=== PATIENT | male | born 1940 | race Caucasian/White ===

== ENCOUNTER → 2020-03-07 | Outpatient (CLI) | payer MEDICARE ==
[~2020-03-07] MED LIST: B-12100T2 PO; D31000TA2 PO
== END ==
LOC: M LABSMTC 10:49
PROVIDERS: ATTEND Anesthesiology
DX: Z01.818 Encounter for other preprocedural examination (principal); Z20.828 Contact with and (suspected) exposure to other viral communicable diseases

== ENCOUNTER 2020-03-12 10:07 | Day surgery (SDC) | payer MEDICARE ==
[~2020-03-12] VITALS: Ht 172.7 cm; Wt 95.7 kg
[~2020-03-12 10:07] MED LIST changes: +LR 1,000 ML IV ONE; +ceFAZolin SOD 2 GM in IV 1 EA IV ONE
[2020-03-12] MEDS ORDERED: fentaNYL 100 MCG/2 ML INJECTION (J3010) As Ordered ONE (11:08)
[2020-03-12] MEDS ORDERED: MIDAZOLAM INJ 2MG/2ML VIAL (J2250 PER 1MG) As Ordered ONE (11:08)
[2020-03-12] MEDS ORDERED: LIDOCAINE 2% 100MG/5ML SDV (FOR ANES.) As Ordered ONE (11:08)
[2020-03-12] MEDS ORDERED: ROCURONIUM BROMIDE 50 MG/5 ML VIAL As Ordered ONE (11:08)
[2020-03-12] MEDS ORDERED: propofoL 200 MG/20 ML VIAL As Ordered ONE (11:08)
[2020-03-12] MEDS ORDERED: NORCO, ANEXSIA 5/325MG TABLET (HYDROcodone/ACETAMINOPHEN) PO PRN (11:30)
[2020-03-12] MEDS ORDERED: MORPHINE 2 MG/ML 1ML VIAL (J2270) IV PRN (11:30)
[2020-03-12] MEDS ORDERED: ACETAMINOPHEN TAB 650MG DOSE (2X325MG) PO PRN (11:30)
[2020-03-12] MEDS ORDERED: BELLADONNA 16.2mg/OPIUM 60mg 1 EA SUPP PR PRN (11:30)
[2020-03-12] MEDS ORDERED: ONDANSETRON 4 MG TAB PO PRN (11:30)
[2020-03-12] MEDS ORDERED: dexameTHASONE 4 MG/ML 1ML VIAL (J1100 PER 1MG) As Ordered ONE (11:37)
[2020-03-12] MEDS ORDERED: SUGAMMADEX SODIUM 500 MG/5 ML VIAL (BRIDION) As Ordered ONE (12:08)
[2020-03-12] MEDS ORDERED: ONDANSETRON 4MG/2ML VIAL As Ordered ONE (12:09)
[2020-03-12] MEDS ORDERED: ACETAMINOPHEN 1000MG 100ML IV BTL (OFIRMEV) (J0131 PER 10MG) As Ordered ONE (12:12)
[2020-03-12] MEDS ORDERED: LR 1,000 ML IV SCH (12:45)
[2020-03-12] MEDS ORDERED: fentaNYL 100 MCG/2 ML INJECTION (J3010) IV PRN (12:45)
[2020-03-12] MEDS ORDERED: PERCOCET 5MG/325MG TAB PO PRN (12:45)
[2020-03-12 14:00] VITALS: BP 135/81
[2020-03-12 14:30] VITALS: BP 136/81
--- NOTE | 2020-03-12 14:33 | RO ---
OPERATIVE NOTE DATE OF OPERATION: 03/12/2020 PREOPERATIVE DIAGNOSIS: BPH with LUTS. POSTOPERATIVE DIAGNOSIS: BPH with LUTS. PROCEDURE PERFORMED: Cystoscopy, TURP. SURGEON: Sang Avendaño MD ANESTHESIA: General. INDICATIONS: This 80-year-old man had a TURP approximately 30 years ago. Lately he has been having recurrent obstructive voiding symptoms. Office cystoscopy revealed significant regrowth of tissue on the right side. PSA 2.8. The patient had poor tolerance for oral medications which worked poorly to relieve his symptoms. PROCEDURE: After obtaining informed consent from the patient, he was taken to the operating room, where he was administered adequate anesthetic; he was prepped and draped in usual manner. 22-Pashto diagnostic cystoscope was passed into the bladder and the bladder inspected. The ureteral orifices were in orthotopic position. There were no mucosal lesions in the bladder. On inspection of the prostatic fossa, there was noted to be significant apical regrowth of tissue on the right side. This caused angulation of the prostatic urethra, likely the source of his obstructive symptoms. The cystoscope was withdrawn and 24-Pashto continuous flow resectoscope was passed over his obturator with sheath passed initially. We used the cutting loop to remove the apical tissue and using saline TURP technique. We irrigated the chips from the bladder with Ellik evacuator and performed meticulous hemostasis with electrocautery. The procedure was concluded with placement of a 22-Pashto three-way Oden catheter. DISPOSITION: The patient is admitted for overnight observation. COMPLICATIONS: None. EBL: 50-100 mL.
[2020-03-12 15:30] VITALS: BP_SYST 134; BP_SYST 136; BP_DIAS 82; BP_DIAS 83
[2020-03-12 16:30] VITALS: BP 134/83
[2020-03-12 17:30] VITALS: BP 134/81
[2020-03-12] MEDS: ceFAZolin SOD 2 GM in D5W MINI-BAG PLUS 50 ML IV SCH (20:53)
[2020-03-12] MEDS: FAMOTIDINE 20 MG TAB PO SCH (20:53)
[2020-03-12 22:00] VITALS: BP 134/59
[2020-03-13 02:00] VITALS: BP 108/55
[2020-03-13] MEDS: ceFAZolin SOD 2 GM in D5W MINI-BAG PLUS 50 ML IV SCH (03:31)
[2020-03-13 06:00] VITALS: BP 105/53
[2020-03-13 08:15] LABS: BLOOD UREA NITROGEN 16 MG/DL (7-18); CALCIUM LEVEL 8.1 MG/DL (8.8-10.2); CARBON DIOXIDE LEVEL 27 MEQ/L (21-32); CHLORIDE LEVEL 109 MEQ/L (98-107); CREATININE FOR GFR 1.12 MG/DL (0.70-1.30); GLOMERULAR FILTRATION RATE > 60.0 (>42); GLUCOSE, FASTING 97 MG/DL (70-100); POTASSIUM SERUM 4.3 MEQ/L (3.5-5.1); SODIUM LEVEL 142 MEQ/L (136-145)
[2020-03-13] MEDS ORDERED: CEPHALEXIN 250MG CAPSULE PO SCH (09:00)
[2020-03-13] MEDS: FAMOTIDINE 20 MG TAB PO SCH (09:06)
[2020-03-13] MEDS ORDERED: PYRI1TAB5 PO (10:39)
[2020-03-13] MEDS ORDERED: KEFL250C11 PO (10:39)
--- NOTE | 2020-03-13 10:51 | DS.PDOC ---
Discharge Summary General Date of Admission 03/12/2020 Date of Discharge 03/13/2020 Attending Physician: TONY LIAO MD Discharge Summary PROCEDURES PERFORMED DURING STAY: TURP. ADMITTING DIAGNOSES: 1. BPH with LUTS. DISCHARGE DIAGNOSES: 1. Same. COMPLICATIONS/CHIEF COMPLAINT: Benign Prostatic Hyperplasia. HISTORY OF PRESENT ILLNESS: Recurrent LUTS with poor emptying and poor tolerance of BPH meds 30 years post TURP. Cysto showed regrowth of BPH tissue. PSA 2.8. HOSPITAL COURSE: Uncomplicated 5 gm TURP. Urine clear on CBI postop. Labs normal PO#1; Afebrile; Controlled symptoms. Successful voiding trial on PO#1. Ambulatory, eating and voiding/emptying @ discharge. DISCHARGE MEDICATIONS: Please see below. ALLERGIES: Please see below. PHYSICAL EXAMINATION ON DISCHARGE: VITAL SIGNS: Please see below. GENERAL: NAD; AA&O x 3 HEENT: Normocephalic,atraumatic NECK: supple CARDIOVASCULAR EXAMINATION: RRR RESPIRATORY EXAMINATION: No resp difficulty; good air movement ABDOMINAL EXAMINATION: NT EXTREMITIES: No edema SKIN: No lesions NEUROLOGICAL EXAMINATION: Nonfocal PSYCHIATRIC EXAMINATION: Judgement/insight intact LABORATORY DATA: Please see below. PROGNOSIS: Excellent ACTIVITY: As per instructions DIET: Regular DISCHARGE PLAN: Home today DISPOSITION: Home DISCHARGE INSTRUCTIONS: 1. Light activity x 1 month. ITEMS TO FOLLOWUP ON ON OUTPATIENT: 1. Path report. DISCHARGE CONDITION: Stable. TIME SPENT ON DISCHARGE: Greater than 30 minutes. Vital Signs/I&Os Vital Signs Date Time Temp Pulse Resp B/P (MAP) Pulse Ox O2 Delivery O2 Flow Rate FiO2 03/13/20 06:00 98.2 61 18 105/53 (70) 95 Room Air I&O- Last 24 Hours up to 6 AM 03/13/20 06:00 Intake Total 1960 ml Output Total 875 ml Balance 1085 ml Laboratory Data Labs 24H Laboratory Tests 2 03/13/20 07:37: Anion Gap 6L, Glomerular Filtration Rate > 60.0, Calcium Level 8.1L CBC/BMP Laboratory Tests 03/13/20 07:37 Discharge Medications Scheduled Cephalexin (Keflex) 250 Mg Capsule, 1 CAP PO TID Cholecalciferol (Vitamin D3) (Vitamin D3) 1,000 Unit Tablet, 1,000 UNITS PO DAILY, (Reported) Cyanocobalamin (Vitamin B-12) (Vitamin B-12) 100 Mcg Tablet, 100 MCG PO DAILY, (Reported) Scheduled PRN Phenazopyridine HCl (Pyridium) 200 Mg Tablet, 200 MG PO TID PRN for BLADDER SPASM Allergies Coded Allergies: No Known Allergies (Unverified , 03/12/20) TONY LIAO MD Mar 13, 2020 10:51
[2020-03-13] MEDS ORDERED: PHENAZOPYRIDINE 100 MG TAB PO PRN (11:00)
== END 2020-03-13 13:07 | disposition home or self-care (01) ==
LOC: M SDC 10:07 → M MS5PR 13:50 → M SDC 03-13 13:07
PROVIDERS: ATTEND Urology
DX: N40.1 Benign prostatic hyperplasia with lower urinary tract symptoms (principal); R35.0 Frequency of micturition; N28.1 Cyst of kidney, acquired; K21.9 Gastro-esophageal reflux disease without esophagitis; R06.83 Snoring; Z86.010 Personal history of colon polyps
CPT/HCPCS: 36415; 52601; 80048; 88305; J0131; J0690; J1100; J2250; J2405; J3010

== ENCOUNTER → 2020-04-15 | Outpatient (REF) | payer MEDICARE ==
[~2020-04-15] MED LIST changes: +KEFL250C11 PO; -LR 1,000 ML IV ONE; +PYRI1TAB5 PO; -ceFAZolin SOD 2 GM in IV 1 EA IV ONE
[2020-04-15 17:05] LABS: APPEARANCE, URINE HAZY (CLEAR); BACTERIA, URINE AUTO NEGATIVE (NEGATIVE); BILIRUBIN, URINE AUTO NEGATIVE (NEGATIVE); BLOOD, URINE BLOOD 3+ (NEGATIVE); COLOR, URINE YELLOW (YELLOW); GLUCOSE, URINE (UA) AUTO NEGATIVE (NEGATIVE); KETONE, URINE AUTO NEGATIVE (NEGATIVE); LEUKOCYTE ESTERASE, URINE AUTO 2+ (NEGATIVE); NITRITE, URINE AUTO NEGATIVE (NEGATIVE); PROTEIN, URINE AUTO NEGATIVE (NEGATIVE); RBC, URINE AUTO 72 /HPF (0-3); SPECIFIC GRAVITY URINE AUTO 1.018 (1.002-1.035); SQUAMOUS EPITHELIAL CELL UR AU 0 /HPF (0-6); UROBILINOGEN, URINE AUTO 0.2 mg/dL (0.0-2.0); WBC, URINE AUTO 54 /HPF (0-3)
== END ==
LOC: M SMT 13:33
PROVIDERS: ATTEND Nurse Practitioner Women's Health
DX: N40.1 Benign prostatic hyperplasia with lower urinary tract symptoms (principal)

== ENCOUNTER → 2020-06-10 | Outpatient (REF) | payer MEDICARE | LOC: M SMT 13:31 | PROVIDERS: ATTEND Urology | DX: N40.1 Benign prostatic hyperplasia with lower urinary tract symptoms (principal) | CPT/HCPCS: 81002; 87086; G0463 ==